=== PATIENT | female | born 2005 | race Caucasian/White ===

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

== ENCOUNTER 2024-03-25 15:27 | Emergency (ER) | payer OTHER ==
[2024-03-25 15:43] VITALS: BP 113/77; PULSE 98; RESP 20; TEMP 97.7; BMI 42.7
== END 2024-03-25 19:13 | disposition home or self-care (01) ==
LOC: JER 15:27
DX: R51.9 Headache, unspecified (principal); M54.12 Radiculopathy, cervical region; R20.0 Anesthesia of skin; R20.2 Paresthesia of skin
CPT/HCPCS: 70450-TC; 72125-TC; 84703; 99284-25